=== PATIENT | male | born 1960 | race Caucasian/White ===

== ENCOUNTER 2020-09-21 10:18 | Emergency (ER) | payer BC ==
[~2020-09-21] VITALS: Ht 182.9 cm; Wt 102.0 kg
[~2020-09-21 10:18] MED LIST: SERT-153 PO
[2020-09-21 11:27] LABS: BASOPHILS # (AUTO) 0.1 X10'3 (0-0.2); BASOPHILS % (AUTO) 0.9 % (0-1); EOSINOPHILS # (AUTO) 0.3 X10'3 (0-0.9); EOSINOPHILS % (AUTO) 5.9 % (0-6); HEMATOCRIT 40.8 % (42.0-52.0); LYMPHOCYTES # (AUTO) 1.8 X10'3 (1.1-4.8); LYMPHOCYTES % (AUTO) 31.6 % (21-51); MEAN CORPUSCULAR HEMOGLOBIN 31.5 PG (27.0-31.0); MEAN CORPUSCULAR HGB CONC 34.2 g/dL (33.0-36.5); MEAN CORPUSCULAR VOLUME 92.3 FL (78-98); MEAN PLATELET VOLUME 9.1 FL (7.4-10.4); MONOCYTES # (AUTO) 0.5 X10'3 (0-0.9); MONOCYTES % (AUTO) 8.7 % (2-12); NEUTROPHILS % (AUTO) 52.9 % (42-75); PLATELET COUNT 249 X10'3 (140-440); RED BLOOD COUNT 4.42 X10'6 (4.70-6.10); RED CELL DISTRIBUTION WIDTH 12.9 % (11.5-14.5); WHITE BLOOD COUNT 5.7 X10'3 (4.5-11.0)
[2020-09-21 11:41] LABS: ALANINE AMINOTRANSFERASE 27 U/L (12-78); ALBUMIN 4.2 G/DL (3.4-5.0); ALBUMIN/GLOBULIN RATIO 1.4 (1.1-1.5); ALKALINE PHOSPHATASE 109 IU/L (46-116); ANION GAP 7 (8-16); ASPARTATE AMINO TRANSFERASE 21 U/L (10-37); BILIRUBIN,TOTAL 0.6 MG/DL (0.1-1.0); BLOOD UREA NITROGEN 15 MG/DL (7-18); BUN/CREATININE RATIO 16.1 (5.4-32.0); CALCIUM 8.9 MG/DL (8.5-10.1); CHLORIDE 105 MMOL/L (99-107); CREATININE 0.93 MG/DL (0.60-1.10); GLUCOSE 87 MG/DL (70-104); POTASSIUM 4.4 MMOL/L (3.5-5.1); SODIUM 141 MMOL/L (135-145); TOTAL PROTEIN 7.3 G/DL (6.4-8.2); eGFR 83 ML/MIN
[2020-09-21] MEDS ORDERED: ALPRAZolam 0.5mg tablet PO ONE (14:40)
[2020-09-21] MEDS ORDERED: iohexol 350MG/ML 100ml bottle IV ONE (14:46)
[2020-09-21 16:43] VITALS: BP 115/83
== END 2020-09-21 16:45 | disposition home or self-care (01) ==
LOC: ER 10:19
DX: R07.89 Other chest pain (principal); R06.02 Shortness of breath; E78.00 Pure hypercholesterolemia, unspecified; I10 Essential (primary) hypertension; K21.9 Gastro-esophageal reflux disease without esophagitis; Z79.899 Other long term (current) drug therapy
CPT/HCPCS: 36415; 71045; 71275; 80053; 83880; 84484; 85025; 93005; 99285; Q9967

== ENCOUNTER 2023-10-27 12:47 | Day surgery (SDC) | payer BC ==
[~2023-10-27] VITALS: Ht 182.9 cm; Wt 102.4 kg
[2023-10-27] VITALS (7 sets, daily range): BP systolic 117–130; BP diastolic 50–85; PULSE 73–81; RESP 16; TEMP 97.9; O2SAT 93–95
[2023-10-27] MEDS ORDERED: diphenhydrAMINE 25mg capsule PO PRN (13:25)
[2023-10-27] MEDS ORDERED: normal saline 1,000 ML IV SCH (13:25)
[2023-10-27] MEDS ORDERED: LORazepam 0.5 MG tablet PO PRN (13:25)
[2023-10-27 13:35] LABS: BASOPHILS % (AUTO) 0.3 % (0-1); EOSINOPHILS % (AUTO) 0.1 % (0-6); HEMATOCRIT 41.6 % (42.0-52.0); HEMOGLOBIN 13.9 g/dl (14.0-17.9); LYMPHOCYTES # (AUTO) 1.2 X10'3 (1.1-4.8); LYMPHOCYTES % (AUTO) 8.7 % (21-51); MEAN CORPUSCULAR HEMOGLOBIN 31.1 PG (27.0-31.0); MEAN CORPUSCULAR HGB CONC 33.5 g/dL (33.0-36.5); MEAN CORPUSCULAR VOLUME 92.7 FL (78-98); MEAN PLATELET VOLUME 7.7 FL (7.4-10.4); MONOCYTES # (AUTO) 0.3 X10'3 (0-0.9); MONOCYTES % (AUTO) 2.3 % (2-12); NEUTROPHILS # (AUTO) 12.8 X10'3 (1.8-7.7); NEUTROPHILS % (AUTO) 88.6 % (42-75); PLATELET COUNT 305 X10'3 (140-440); RED BLOOD COUNT 4.49 X10'6 (4.70-6.10); RED CELL DISTRIBUTION WIDTH 15.2 % (11.5-14.5); WHITE BLOOD COUNT 14.4 X10'3 (4.5-11.0)
[2023-10-27 13:46] LABS: ALBUMIN 3.2 G/DL (3.4-5.0); ANION GAP 9 (8-16); APTT 22 SECONDS (22-32); BLOOD UREA NITROGEN 24 MG/DL (7-18); BUN/CREATININE RATIO 28.2 (10.0-20.0); CALCIUM 8.8 MG/DL (8.5-10.1); CHLORIDE 104 MMOL/L (99-107); CREATININE 0.85 MG/DL (0.60-1.10); GLUCOSE 114 MG/DL (70-104); POTASSIUM 4.6 MMOL/L (3.5-5.1); PROTHROMBIN TIME 9.8 SECONDS (9.0-12.0); SODIUM 139 MMOL/L (135-145); TOTAL CARBON DIOXIDE 26.3 MMOL/L (24-32); eCRCL 98 ML/MIN; eGFR > 90 ML/MIN
[2023-10-27 13:50] LABS: CHOL/HDL RATIO 3.8 (0.00-4.99); CHOLESTEROL 227 MG/DL (0-200); HDL CHOLESTEROL 60 MG/DL (35-60); LDL CHOLESTEROL 141 MG/DL (50-100); TRIGLYCERIDES 145 MG/DL (20-135)
[2023-10-27] MEDS ORDERED: OMEG100037 PO (13:53)
[2023-10-27] MEDS ORDERED: ESCI20TA39 PO (13:53)
[2023-10-27] MEDS ORDERED: SULF-14 PO (13:53)
[2023-10-27] MEDS ORDERED: PRED10TA PO (13:53)
[2023-10-27] MEDS ORDERED: AMIT25TA9 PO (13:53)
[2023-10-27] MEDS ORDERED: ASPI81TA52 PO (13:53)
[2023-10-27] MEDS ORDERED: OMEP20CA16 PO (13:53)
[2023-10-27] MEDS ORDERED: EZET10TA6 PO (13:53)
[2023-10-27] MEDS ORDERED: PRAV40TA3 PO (13:53)
[2023-10-27] MEDS ORDERED: LEVO75TA7 PO (13:53)
[2023-10-27 13:58] LABS: INR 0.9 INR
[2023-10-27] MEDS ORDERED: LIDOcaine 1% (10mg/ml) 2ml vial ONE (14:29)
[2023-10-27] MEDS ORDERED: midazolam 1 mg/ML 2ml injection ONE (14:41)
[2023-10-27] MEDS ORDERED: fentaNYL/PF 50MCG/1 ML 2ML syringe ONE (14:41)
== END 2023-10-27 16:50 | disposition home or self-care (01) ==
LOC: SSTAY O 12:47
PROVIDERS: ATTEND Internal Medicine Interventional Cardiology
DX: J84.112 Idiopathic pulmonary fibrosis (principal); I10 Essential (primary) hypertension; E78.00 Pure hypercholesterolemia, unspecified; E03.9 Hypothyroidism, unspecified; K21.9 Gastro-esophageal reflux disease without esophagitis; F32.A Depression, unspecified; Z79.2 Long term (current) use of antibiotics; Z79.890 Hormone replacement therapy; Z79.82 Long term (current) use of aspirin; Z79.899 Other long term (current) drug therapy
CPT/HCPCS: 36415; 80048; 80061; 85025; 85610; 85730; 93005; 93451; J1644; J2250; J3010; J3490; J7030; 99152; C1751